=== PATIENT | female | born 1970 | race Caucasian/White ===

== ENCOUNTER 2019-09-02 15:35 | Emergency (ER) | payer SELFPAY ==
[2019-09-02 15:41] VITALS: BP 142/98; PULSE 90; RESP 18; TEMP 36.8; O2SAT 97; BMI 25.7
--- NOTE | 2019-09-02 17:48 | XR_ITS ---
WS: [id number] RIGHT HAND: 3 VIEW(S) TECHNIQUE: PA, oblique and lateral. HISTORY: dog bite COMPARISON: None available. No acute fracture or dislocation. No soft tissue or bone abnormality. XR/XR hand RT min 3V* [id number] IMPRESSION: Normal RIGHT hand.
--- NOTE | 2019-09-02 17:48 | XR_ITS ---
WS: [id number] LEFT HAND: 3 VIEW(S) TECHNIQUE: PA, oblique and lateral. HISTORY: dog bite COMPARISON: None available. No acute fracture or dislocation. Large amount of soft tissue injury centered over the dorsal hand. There is a large amount of air in t he soft tissues with soft tissue thickening. No foreign body. No fracture. XR/XR hand LT min 3V* [id number] IMPRESSION: Large amount soft tissue injury with air over the dorsal hand.
--- NOTE | 2019-09-02 17:50 | W.ED.ANIMALB ---
HPI - Animal Bite General: Chief Complaint: Animal Bite Stated Complaint: dog bite Time Seen by Provider: 09/02/19 17:42 History of Present Illness: HPI narrative: Jessica is a nice 49-year-old female who comes in with dog bites to her right index finger and her back of her left hand. She also has abrasions. The dogs were hers but they were puppies and have not been immunized. The mother has had a full immunization for rabies. The puppies were playing when he got aggressive and began to fight and she was bitten when she tried to break up the fight. The animals appear healthy otherwise and can be observed and quarantined until clear. Associated symptoms: Deny chills, diaphoresis, fever(s), headache(s) or syncope Review of Systems Const: Denies: fever(s), chills, body aches, fatigue, malaise, night sweats or diaphoresis Eyes: Denies: change in vision, blurry vision or blind spots ENMT: Denies: throat pain, odynophagia, hoarseness, ear or mastoid pain, ear discharge, change in hearing or nasal discharge Card: Denies: chest pain, palpitations, irregular heart rhythm, lightheadedness, syncope, pre-syncope, dyspnea on exertion or orthopnea Resp: Denies: dyspnea, productive cough, non-productive cough, wheezing, hemoptysis or chest congestion GI: Denies: abdominal pain, nausea, vomiting, hematemesis, coffee ground emesis, heartburn, diarrhea, constipation, GI cramping, hematochezia or melena : Denies: flank pain, dysuria, urinary frequency, urinary urgency, oliguria, urinary incontinence or hematuria Musc: Reports: joint pain; Denies: neck pain, back pain, extremity pain, extremity swelling, joint swelling, joint redness, joint warmth or joint stiffness Skin/Breast: Denies: rash, pruritus, erythema, skin tenderness or jaundice Neuro: Denies: headache(s), numbness in extremities, weakness in extremities, sensory changes, lack of coordination, difficulty walking, dizziness, vertigo, confusion or Slurred speech present Endo: Denies: polyuria, polydipsia, tired all the time, cold intolerance, excessive sweating, flushing, hot flashes or heat intolerance Pilo/Lymph: Denies: easy bruising, easy bleeding, petechiae, purpura or enlarged lymph nodes All/Imm: Denies: urticaria, throat swelling, tongue swelling, facial swelling or acute wheezing PFSH ED PFSH: Medical History No pertinent past medical history Surgical History (Updated 09/02/19 @ 17:52 by Claudia Carlisle) Previous section Tubal ligation status Social History Smoking and tobacco status: never smoked Physical Exam Const: COMMON NORMALS: no acute distress, patient oriented x3, no limitations, healthy appearing and well nourished EXAM LIMITATIONS: no altered mental status GENERAL APPEARANCE: cooperative, well kempt and well developed HENMT: COMMON NORMALS: normocephalic, atraumatic, hearing grossly normal bilaterally, external ears normal, EAC's normal, Normal external nose present and moist oral mucous membranes HEAD & SCALP: normal to inspection, normocephalic and atraumatic FACE & SINUS: normal facial exam and face symmetric NOSE: Normal external nose present and Normal nares present EXTERNAL EAR: Yes external ears normal EXTERNAL AUDITORY CANAL: EAC's normal MOUTH: Normal oral and palatal mucosa present, lip normal and tongue normal Eye: COMMON NORMALS: Equal, round and reactive pupils present, EOMs intact bilaterally, conjunctivae normal and no scleral icterus GENERAL EYE: appearance normal, both eyes and all related structures and normal light reflex ALIGNMENT: Yes alignment normal PERIORBITAL: periorbital findings normal EYELID: eyelids normal CONJUNCTIVA: Yes conjunctivae normal SCLERA: sclerae normal PUPIL: Yes Equal, round and reactive pupils present DIRECT OPHTHALMOSCOPY: Yes normal light reflex Neck/C-Spine: COMMON NORMALS: full ROM, no lymphadenopathy, supple, no meningeal signs and no JVD GENERAL: Yes normal visual inspection and Yes trachea midline CERVICAL SPINE: Yes cervical ROM normal Chest: COMMONS NORMALS: normal inspection of the chest and normal palpation of entire chest wall Resp: COMMON NORMALS: normal respiratory effort, No retractions, No use of accessory muscles and clear to auscultation bilaterally EFFORT & INSPECTION: Yes able to speak in complete sentences AUSCULTATION: clear to auscultation bilaterally, no crackles, no rales, no rhonchi and no wheezes Cardio: COMMON NORMALS: no JVD, regular rate, regular rhythm, S1 normal heart sound present, S2 normal heart sound present, No gallops present (Cardio), No clicks present (Cardio), No murmurs present (Cardio) and No rub (Cardio) RATE: regular rate RHYTHM: regular rhythm HEART SOUNDS: S1 normal heart sound present, S2 normal heart sound present, no click, no gallops, no murmurs and no rubs GI: COMMON NORMALS: Soft to palpation, non-tender, No hepatosplenomegaly present and no masses PALPATION: Yes Soft to palpation, No Tenderness to palpation present (GI), No Guarding due to palpation present (GI), No Rigid due to palpation, Yes No hepatosplenomegaly present, No Hernia present, No Palpable mass present and No Pulsatile mass present : COMMON NORMALS: Yes no CVA tenderness BLADDER/KIDNEY EXAM: Yes no CVA tenderness EXTERNAL FEMALE EXAM: No Hernia present Back/Pelvis: COMMON NORMALS: no CVA tenderness, thoracic and lumbar spine normal to inspection, no thoracic nor lumbar tenderness and thoraco-lumbar ROM normal Extremity: COMMON NORMALS: full ROM, capillary refill normal, no joint enlargement, no clubbing, cyanosis or edema and no calf tenderness OTHER: Right index finger with 3 distinct puncture wounds to the finger. Patient has full range of motion and normal capillary refill. Left hand has a puncture wound to the dorsum of the hand. There is also a large abrasion to the right posterior hand. Neuro: COMMON NORMALS: patient oriented x3, CN's II-XII intact bilaterally, moves all extremities, no focal motor deficits and no sensory deficits noted MENINGEAL SIGNS: Yes no meningeal signs SPEECH: speech normal Psych: COMMON NORMALS: mental status grossly normal, Normal thought process present, cooperative, normal affect, speech normal and activity/motor behavior normal APPEARANCE: Yes well kempt SPEECH: Yes normal speech THOUGHT PROCESS: Normal thought process present Skin: COMMON NORMALS: no rashes or lesions noted, turgor normal, no jaundice, no petechiae and no mottling GENERAL SKIN EXAM: no rashes or lesions noted and turgor normal Course Vital Signs: Vital signs: Vital Signs Temperature 98.3 F 09/02/19 15:41 Pulse Rate 90 09/02/19 15:41 Respiratory Rate 18 09/02/19 15:41 Blood Pressure 142/98 09/02/19 15:41 Pulse Oximetry 97 09/02/19 15:41 MDM - Animal Bite MDM Narrative: Medical decision making narrative: Patient agrees to take her puppy to the local project control officer to have them quarantined and watched and evaluated for rabies. She declines to start a prophylactic rabies vaccination series. She agrees to return if your hands show any sign of infection. Her x-rays show no sign of foreign body or fracture at this time. She understands the reasons for which return. Further care will be dictated on an outpatient basis. Imaging Data^: Right Hand: My impression: No acute fractures or dislocations. No foreign bodies. Left Hand: My impression: No acute fractures dislocations. No foreign bodies. Discharge Plan Discharge Patient Disposition: Home, Self-Care Clinical Impression: Dog bite Qualifiers: Encounter type: initial encounter Qualified Code(s): W54.0XXA - Bitten by dog, initial encounter Condition: Stable Prescriptions: New Augmentin 875-125 mg tablet 1 tab PO BID 10 Days Qty: 20 RF: 0 Discharge Orders: Discharge Order (Routine); Ordered 09/02/19 Ordered By: Claudia Carlisle Referrals: Yosef Harley FNP [Primary Care Provider] - 1-3 days Discharge Diet: Advance as tolerated Discharge Activity: Increase activity as tolerated Patient Instructions: Animal Bite (ED) Activity Restrictions/Additional Instructions: Please return to the ER immediately for any of the signs or symptoms listed on your discharge instruction sheets, worsening/changing of your symptoms, you are not getting better as quickly as expected, or for ANY other cause or concerns. Take your puppies to the project control officer for them to evaluate for the need of quarantine until they are cleared from rabies. If you change your mind and want to be started on a rabies vaccination series you are free to return here at any time. Keep your wounds clean and dry and apply antibiotic ointment until they have closed. Be certain to follow-up with your doctor for recheck. Coding Level of Care Code ED Sterile Process Tech for Melisa Fwtoño Exam Comprehensive
[2019-09-02] MEDS: amoxicillin-clav 875-125 mg Tablet 1 TAB PO (18:37)
[2019-09-02] MEDS: acetaminophen 500 mg Tablet 1000 MG PO (18:38)
[2019-09-02] MEDS: neomycin-poly-bacitracin oint 0.9 gm Pkt 1 APPLIC TOPICAL (18:39)
--- NOTE | 2019-09-02 18:53 | PC.NURSE ---
wounds were covered with tdap telfa and covered with kerlix, patient tolerated well
[2019-09-02 18:54] VITALS: PULSE 90; O2SAT 97
== END 2019-09-02 18:57 | disposition home or self-care (01) ==
LOC: ER 18:37
PROVIDERS: Emergency Provider Emergency Medicine
DX: S61.250A Open bite of right index finger without damage to nail, initial encounter (principal); S61.452A Open bite of left hand, initial encounter; W54.0XXA Bitten by dog, initial encounter
CPT/HCPCS: 12345; 73130; 99281; 99283

== ENCOUNTER → 2019-12-14 10:26 | Outpatient (BNVA) | payer SELFPAY | PROVIDERS: Visit Provider Nurse Practitioner Family | DX: R53.83 Other fatigue (principal); R35.0 Frequency of micturition; R73.9 Hyperglycemia, unspecified | CPT/HCPCS: 80053; 81000; 83036; 84443; 85025 ==

== ENCOUNTER → 2020-03-06 12:43 | Outpatient (BNVA) | payer OTHER, SELFPAY | PROVIDERS: Visit Provider Nurse Practitioner Family | DX: Z20.828 Contact with and (suspected) exposure to other viral communicable diseases (principal) | CPT/HCPCS: 87400; 87635 ==

== ENCOUNTER → 2020-03-09 14:44 | Outpatient (BNVA) | payer OTHER, SELFPAY | PROVIDERS: Visit Provider Emergency Medicine | DX: Z20.828 Contact with and (suspected) exposure to other viral communicable diseases (principal); R68.89 Other general symptoms and signs; R11.0 Nausea | CPT/HCPCS: 87400; 87635 ==

== ENCOUNTER → 2021-05-11 09:51 | Outpatient (BNVA) | payer OTHER, SELFPAY | PROVIDERS: Visit Provider Nurse Practitioner Family | DX: Z20.822 Contact with and (suspected) exposure to COVID-19 (principal) | CPT/HCPCS: 87635 ==

== ENCOUNTER 2022-02-13 10:56 | Emergency (ER) | payer OTHER, SELFPAY ==
[2022-02-13] VITALS (7 sets, daily range): BP systolic 99–127; BP diastolic 56–78; PULSE 60–72; RESP 12–18; TEMP 36.8; O2SAT 98–100; BMI 25.0
--- NOTE | 2022-02-13 11:01 | XR_ITS ---
WS: [id number] Exam: XR chest 1V portable [id number] Date/Time of Exam: 02/13/2022 11:08 AM Reason For Exam: chest pain No priors Findings: The lungs are clear and fully expanded. Costophrenic angles are sharp. No infiltrates. Bronchovascula r relief appears normal. Cardiac silhouette is unremarkable. Bony elements are intact. XR/XR chest 1V portable [id number] IMPRESSION: Unremarkable chest radiograph.
--- NOTE | 2022-02-13 11:02 | ECG_ITS ---
[facility] Test Date: 2022-02-13 Pat Name: Jessica Trent Department: Room: Gender: Female Airplane Technician: : 1970 Requested By: Moustapha Felton Order Number: [id number] Dimple MD: Ila Melissa M.D. Measurements Intervals [place] Rate: 64 P: 48 MT: 120 QRS: 52 QRSD: 97 T: 49 QT: 408 QTc: 422 Interpretive Statements SINUS RHYTHM Compared to ECG 02/13/2022 11:12:38 Short MT interval no longer present Electronically Signed On 02-14-2022 0:19:23 CDT by Ila Melissa M.D. [email or web address] medical [id number]
--- NOTE | 2022-02-13 11:12 | ECG_ITS ---
[facility] Test Date: 2022-02-13 Pat Name: Jessica Trent Department: Room: Gender: Female Director Of Academic Support: : 1970 Requested By: Moustapha Felton Order Number: [id number] Dimple MD: Ila Melissa M.D. Measurements Intervals [place] Rate: 61 P: 57 WV: 117 QRS: 59 QRSD: 97 T: 49 QT: 414 QTc: 417 Interpretive Statements SINUS RHYTHM WITH SHORT [place] INTERVAL No previous ECG available for comparison Electronically Signed On 02-14-2022 0:19:11 CDT by Ila Melissa M.D. [id number]
[2022-02-13 11:16] LABS: Basophils % 0.4 %; Eosinophils # 0.1 10^3/uL (0.0-0.8); Eosinophils % 1.9 %; Hematocrit 38.9 % (37.0-47.0); Lymphocytes # 1.7 10^3/uL (0.8-4.8); Lymphocytes % 22.3 %; Mean Corpuscular HGB Conc 33.4 g/dL (30.0-36.0); Mean Corpuscular Hemoglobin 30.1 pg (28.0-34.0); Mean Platelet Volume 9.6 fL (7.4-10.4); Monocytes # 0.4 10^3/uL (0.2-0.9); Monocytes % 5.6 %; Neutrophils # 5.19 10^3/uL (1.8-7.7); Neutrophils % 69.5 %; Nucleated Red Blood Cells % 0 %; Platelet Count 351 10^3/cmm (130-400); Red Blood Count 4.32 10^6/uL (4.1-5.3); Red Cell Distribution Width 12.9 % (12.1-15.1); White Blood Count 7.5 10^3/uL (4.0-10.0)
--- NOTE | 2022-02-13 11:25 | ED_ITS ---
HPI - Chest Pain General: Chief Complaint: Chest Pain Stated Complaint: CHEST PAIN Time Seen by Provider: 02/13/22 11:01 Source: patient Mode of arrival: ambulatory History of Present Illness: 51-year-old female presents emergency room with complaints of chest pain. She has chest pain that she describes radiating to left arm and her arm tingle she has not had any history of coronary disease not previously had pain like this before the pain is worse with deep inspiration and palpation along the anterior chest wall even noticeable lightly resting a stethoscope on her anterior chest to auscultate heart sounds she has increased discomfort. She is not a smoker is not diabetic has no known history. She was brought in by EMS. She states chest pain began this morning at about 530 she was seen at [facility] and then transferred here. Initial EKG shows a normal sinus rhythm with no acute ST changes. MD complaint: chest pain Onset (ago): hour(s) Timing of current episode: episodic Prior episodes: No Onset: during rest Pain location: left chest Pain radiation: left arm Severity: mild Quality: sharp Relieving factors: nothing Exacerbating factors: inspiration and palpation Associated symptoms: Deny abdominal pain, diaphoresis, dyspnea, fever(s), leg edema, nausea, palpitations, sense of impending doom, syncope or vomiting Treatment prior to arrival: aspirin Review of Systems Const: Denies: fever(s), chills, fatigue, malaise or diaphoresis Card: Reports: chest pain; Denies: palpitations, irregular heart rhythm, edema or syncope Resp: Denies: dyspnea, productive cough or non-productive cough GI: Denies: abdominal pain, nausea or vomiting [facility] ED PFSH: Medical History (Updated 02/13/22 @ 14:39 by Moustapha Terrell DO) Dog bite, hand No pertinent past medical history Surgical History Previous section Tubal ligation status Social History Smoking and tobacco status: never smoked Second hand smoke exposure: No Alcohol intake: never Desire information about alcohol rehabilitation?: No Desire information about substance/drug rehabilitation?: No History of recent travel: No Current gender identity: Female Female Reproductive History: Spontaneous abortions: No Physical Exam Const: COMMON NORMALS: no acute distress GENERAL APPEARANCE: cooperative and comfortable ORIENTATION/CONSCIOUSNESS: Yes awake, Yes oriented to person, Yes oriented to place and Yes oriented to time HENMT: COMMON NORMALS: normocephalic, atraumatic and hearing grossly normal bilaterally HEAD & SCALP: normocephalic and atraumatic Chest: CHEST: Yes tenderness (Upper sternum) Resp: COMMON NORMALS: normal respiratory effort, No retractions, No use of accessory muscles and clear to auscultation bilaterally AUSCULTATION: clear to auscultation bilaterally Cardio: COMMON NORMALS: regular rate, regular rhythm and No murmurs present (Cardio) RATE: regular rate RHYTHM: regular rhythm GI: COMMON NORMALS: Soft to palpation and No hepatosplenomegaly present AUSCULTATION: Yes normoactive bowel sounds PALPATION: Yes Soft to palpation, No Tenderness to palpation present (GI), No Guarding due to palpation present (GI) and Yes No hepatosplenomegaly present Extremity: COMMON NORMALS: normal to inspection, capillary refill normal, no clubbing, cyanosis or edema, no calf tenderness and no pedal edema Neuro: SENSORIUM/ORIENTATION: Yes oriented to person, Yes oriented to place and Yes oriented to time Skin: COMMON NORMALS: no rashes or lesions noted GENERAL SKIN EXAM: no rashes or lesions noted Course Vital Signs: Vital signs: Vital Signs Temperature 98.2 F 02/13/22 10:54 Pulse Rate 60 02/13/22 14:00 Respiratory Rate 14 02/13/22 14:00 Blood Pressure 107/66 02/13/22 14:00 Pulse Oximetry 98 02/13/22 14:00 Oxygen Delivery Me thod 02/13/22 12:30 MDM - Chest Pain Medical Decision Making EKG and cardiac enzymes are unremarkable. She not tachycardic or hypoxic there is no sign of history OR on her x-ray of pneumonia. Her chest pain improved with the Toradol is very reproducible on initial evaluation. I did complete the full work-up however because of her complaints of tingling in the arm. She tells me she has had neck issues in the past this could be from a cervical nerve root irritation or impingement she has no other focal neurologic deficit at this time suggestive of a stroke and think we can let her go home have her follow-up with her primary care doctor if she has any further problems. If significantly worsens return to the emergency room. Medical Records I reviewed the patient's medical records. Lab Data I reviewed the patient's lab results. : 02/13/22 11:10 02/13/22 11:40 Radiology Impressions Chest X-Ray 02/13/22 11:01 IMPRESSION: Unremarkable chest radiograph. Laboratory Results WBC 7.5 10^3/uL (4.0-10.0) 02/13/22 11:10 RBC 4.32 10^6/uL (4.1-5.3) 02/13/22 11:10 Hgb 13.0 g/dL (11.5-15.3) 02/13/22 11:10 Hct 38.9 % (37.0-47.0) 02/13/22 11:10 MCV 90.0 fl (81-99) 02/13/22 11:10 MCH 30.1 pg (28.0-34.0) 02/13/22 11:10 MCHC 33.4 g/dL (30.0-36.0) 02/13/22 11:10 RDW 12.9 % (12.1-15.1) 02/13/22 11:10 Plt Count 351 10^3/cmm (130-400) 02/13/22 11:10 MPV 9.6 fL (7.4-10.4) 02/13/22 11:10 Neut % (Auto) 69.5 % 02/13/22 11:10 Lymph % (Auto) 22.3 % 02/13/22 11:10 [place] % (Auto) 5.6 % 02/13/22 11:10 Eos % (Auto) 1.9 % 02/13/22 11:10 Baso % (Auto) 0.4 % 02/13/22 11:10 Neut # (Auto) 5.19 10^3/uL (1.8-7.7) 02/13/22 11:10 Lymph # (Auto) 1.7 10^3/uL (0.8-4.8) 02/13/22 11:10 [place] # (Auto) 0.4 10^3/uL (0.2-0.9) 02/13/22 11:10 Eos # (Auto) 0.1 10^3/uL (0.0-0.8) 02/13/22 11:10 Baso # (Auto) 0.0 10^3/uL (0.0-0.1) 02/13/22 11:10 Nucleated RBC % (auto) 0 % 02/13/22 11:10 Nucleated RBCs # 0.0 /100WBC 02/13/22 11:10 Sodium 136 mmol/L (136-145) 02/13/22 11:40 Potassium 3.8 mmol/L (3.5-5.1) 02/13/22 11:40 Chloride 101 mmol/L (98-107) 02/13/22 11:40 Carbon Dioxide 24 mmol/L (22-29) 02/13/22 11:40 Anion Gap 14.8 (5-19) 02/13/22 11:40 BUN 16 mg/dL (6-20) 02/13/22 11:40 Creatinine 0.9 mg/dL (0.5-0.9) 02/13/22 11:40 GFR Calculation 66.5 mL/min (90-130) L 02/13/22 11:40 Glucose 99 mg/dL (65-115) 02/13/22 11:40 Calculated Osmolality 283 mOsm/kg (285-295) L 02/13/22 11:40 Calcium 9.0 mg/dL (8.5-10.5) 02/13/22 11:40 Total Bilirubin 0.3 mg/dL (0.15-1.2) 02/13/22 11:40 AST 18 U/L (0-32) 02/13/22 11:40 ALT 10 U/L (0-33) 02/13/22 11:40 Alkaline Phosphatase 49 U/L (35-105) 02/13/22 11:40 Troponin T Baseline 6 ng/L (0-10) 02/13/22 11:40 Troponin T 120 Minute 6.00 ng/L (0-10) 02/13/22 13:43 Delta Troponin T 0 ABS# (0-10) 02/13/22 13:43 NT-Pro-B Natriuret Pep Cancelled 02/13/22 11:10 Total Protein 6.7 g/dL (6.6-8.7) 02/13/22 11:40 Albumin 3.9 g/dL (3.5-5.2) 02/13/22 11:40 Globulin 2.8 g/dL (1.3-4.6) 02/13/22 11:40 Lipase 51 U/L (13-60) 02/13/22 11:40 HCG, Qual Negative (Negative) 02/13/22 11:40 Urine Color Straw (Yellow) 02/13/22 12:11 Urine Appearance Clear (CLEAR) 02/13/22 12:11 Urine pH 6.5 (5-7) 02/13/22 12:11 Ur Specific [place] 1.010 (1.005-1.030) 02/13/22 12:11 Urine Protein Neg (Negative) 02/13/22 12:11 Urine Glucose (UA) Norm (Normal) 02/13/22 12:11 Urine Ketones Negative (Negative) 02/13/22 12:11 Urine Blood Neg (Negative) 02/13/22 12:11 Urine Nitrate Negative (Negative) 02/13/22 12:11 Urine Bilirubin Neg (Negative) 02/13/22 12:11 Urine Urobilinogen Norm mg/dL (Negative) 02/13/22 12:11 Ur Leukocyte Esterase Negative (Negative) 02/13/22 12:11 Discharge Plan Discharge Patient Disposition: Home Clinical Impression: Acute chest wall pain Condition: Stable Prescriptions: No Action No Known Home Medications Discharge Orders: Discharge ED (Routine); Ordered 02/13/22 Ordered By: Moustapha Terrell Discharge Activity: Increase activity as tolerated Patient Instructions: Opioid Safety, Pain Management Activity Restrictions/Additional Instructions: Return if you have further problems. If any of your symptoms persist follow-up with your primary care doctor. If they get worse return to the emergency room. Coding Level of Care Code ED Supervisor Sawmill for Melisa Fwd Exam Comprehensive
[2022-02-13 12:12] LABS: Troponin(5th) Baseline 6 ng/L (0-10)
[2022-02-13 12:13] LABS: Alanine Aminotransferase 10 U/L (0-33); Albumin Level 3.9 g/dL (3.5-5.2); Alkaline Phosphatase 49 U/L (35-105); Anion Gap 14.8 (5-19); Aspartate Amino Transferase 18 U/L (0-32); Blood Urea Nitrogen 16 mg/dL (6-20); Carbon Dioxide 24 mmol/L (22-29); Chloride 101 mmol/L (98-107); Globulin 2.8 g/dL (1.3-4.6); Glomerular Filtration Rate 66.5 mL/min (90-130); Glucose 99 mg/dL (65-115); Lipase 51 U/L (13-60); Osmolality Calculated 283 mOsm/kg (285-295); Potassium 3.8 mmol/L (3.5-5.1); Sodium 136 mmol/L (136-145); Total Bilirubin 0.3 mg/dL (0.15-1.2); Total Protein 6.7 g/dL (6.6-8.7)
--- NOTE | 2022-02-13 12:18 | PC.NURSE ---
PT PLACED ON CONTINUOUS NIBP, SPO2, AND CM
[2022-02-13 12:21] LABS: Add Urine Microscopic? NO; Charge for UA Resulting for Rev
[2022-02-13 12:27] LABS: Bilirubin Urine Neg (Negative); Blood Urine Neg (Negative); Glucose Urine UA Norm (Normal); Ketones Urine Negative (Negative); Leukocyte Esterase Urine Negative (Negative); Nitrate Urine Negative (Negative); Protein Urine Neg (Negative); Urine Appearance Clear (CLEAR); Urine Color Straw (Yellow); Urobilinogen Urine Norm (Negative); pH Urine 6.5 (5-7)
[2022-02-13 12:27] LABS: HCG, Serum Qual Negative (Negative)
--- NOTE | 2022-02-13 13:29 | ECG_ITS ---
[facility] Test Date: 2022-02-13 Pat Name: Jessica Trent Department: Room: Gender: Female Rn Hemodialysis: : 1970 Requested By: Moustapha Felton Order Number: [id number] Dimple MD: Ila Melissa M.D. Measurements Intervals [place] Rate: 64 P: 52 ME: 120 QRS: 53 QRSD: 102 T: 50 QT: 433 QTc: 449 Interpretive Statements SINUS RHYTHM Compared to ECG 02/13/2022 11:36:09 No significant changes Electronically Signed On 02-14-2022 0:25:33 CDT by Ila Melissa M.D. [id number]
[2022-02-13] MEDS: ketorolac 30 mg/mL INJ IVP (13:48)
[2022-02-13 14:36] LABS: Troponin 5 2HR Delta 0 ABS# (0-10)
== END 2022-02-13 14:55 | disposition home or self-care (01) ==
PROVIDERS: Emergency Provider Family Medicine
DX: R07.89 Other chest pain (principal)
CPT/HCPCS: 71045; 80048; 80053; 81003; 83690; 84484; 84703; 85025; 93005; 96374; 99285; J1885

== ENCOUNTER → 2022-09-25 09:59 | Outpatient (BNVA) | payer OTHER, SELFPAY | PROVIDERS: Visit Provider Nurse Practitioner Family | DX: J02.9 Acute pharyngitis, unspecified (principal) | CPT/HCPCS: 87071; 87880 ==

== ENCOUNTER → 2022-11-16 09:42 | Outpatient (BNVA) | payer OTHER, SELFPAY | PROVIDERS: Visit Provider Podiatrist Foot & Ankle Surgery | DX: M72.2 Plantar fascial fibromatosis; M24.571 Contracture, right ankle | CPT/HCPCS: 73630 ==

== ENCOUNTER → 2022-11-26 14:04 | Outpatient (BNVA) | payer OTHER, SELFPAY | PROVIDERS: Visit Provider Nurse Practitioner Family | DX: R06.02 Shortness of breath (principal); R07.9 Chest pain, unspecified | CPT/HCPCS: 71046; 80053; 85025; 86140 ==